=== PATIENT | female | born 1975 | race African-American/Black ===

== ENCOUNTER 2021-10-29 01:39 | Emergency (ER) | payer SELFPAY ==
[~2021-10-29] VITALS: Ht 170.2 cm; Wt 109.8 kg
[2021-10-29] MEDS ORDERED: DICYCLOMINE HCL20 MG PO (04:10)
== END 2021-10-29 02:35 | disposition left against medical advice (07) ==
LOC: FSED 01:54
DX: R10.32 Left lower quadrant pain (principal)

== ENCOUNTER 2021-10-29 02:26 | Emergency (ER) | payer BC ==
[~2021-10-29] VITALS: Ht 170.2 cm; Wt 109.8 kg
[2021-10-29] MEDS ORDERED: SODIUM CHLORIDE 0.9% 1000ML 1,000 ML IV STA (02:42)
[2021-10-29] MEDS ORDERED: FENTANYL CITRATE/PF 100MCG/2 ML INJ IV PRN (02:45)
[2021-10-29 02:46] LABS: BASOPHILS % 0.2 % (0.0-1.0); EOSINOPHILS # (AUTO) 0.1 (0.0-0.4); HEMATOCRIT 40.7 % (34.2-44.1); HEMOGLOBIN 12.5 g/dL (12.0-16.0); LYMPHOCYTES # (AUTO) 2.2 (1.0-3.2); LYMPHOCYTES % 36.2 % (18.0-39.1); MEAN CORPUSCULAR HEMOGLOBIN 25.4 pg (28-32); MEAN CORPUSCULAR HGB CONC 30.7 g/dL (31-35); MEAN CORPUSCULAR VOLUME 82.6 fL (81-99); MONOCYTES # (AUTO) 0.6 (0.2-0.8); MONOCYTES % 9.9 % (4.4-11.3); NEUTROPHILS # (AUTO) 3.3 (2.1-6.9); NEUTROPHILS % 52.5 % (38.7-80.0); PLATELET COUNT 260 x10e3/uL (140-360); RED BLOOD COUNT 4.93 x10e6/uL (3.6-5.1); RED CELL DISTRIBUTION WIDTH 15.1 % (11.7-14.4)
[2021-10-29 02:47] LABS: CLARITY,URINE SL CLOUDY (CLEAR); COLOR,URINE YELLOW (YELLOW); KETONES,URINE NEGATIVE (NEGATIVE); LEUKOCYTE ESTERASE ,URINE NEGATIVE (NEGATIVE); NITRITE,URINE NEGATIVE (NEGATIVE); PROTEIN,URINE DIPSTICK NEGATIVE (NEGATIVE); URINE UROBILINOGEN 0.2 mg/dL (0.2 - 1)
[2021-10-29 02:53] LABS: BACTERIA,URINE FEW /HPF; EPITHELIAL CELLS,URINE MODERATE /LPF; WBC,URINE (MAN) 0-5 /HPF (0-5)
[2021-10-29] MEDS ORDERED: FENTANYL CITRATE/PF 100MCG/2 ML INJ ONE (03:00)
[2021-10-29 03:06] LABS: ALBUMIN 3.6 g/dL (3.5-5.0); ALBUMIN/GLOBULIN RATIO 0.9 (0.8-2.0); ANION GAP 12.5 mmol/L (8-16); CREATININE, SERUM 0.9 mg/dL (0.57-1.11); POTASSIUM 3.5 mmol/L (3.5-5.1)
[2021-10-29] MEDS ORDERED: IOPAMIDOL 370 MG/ML 100 ML INFUS..BTL INJ ONE (03:31)
[2021-10-29] MEDS ORDERED: DICYCLOMINE HCL20 MG PO (04:10)
[2021-10-29 04:26] VITALS: BP 156/98
== END 2021-10-29 04:18 | disposition home or self-care (01) ==
LOC: ER 02:46
DX: R10.32 Left lower quadrant pain (principal); K59.09 Other constipation; M54.50 Low back pain, unspecified; I10 Essential (primary) hypertension; K21.9 Gastro-esophageal reflux disease without esophagitis; Z87.442 Personal history of urinary calculi; Z86.16 Personal history of COVID-19
CPT/HCPCS: 36415; 74177; 80053; 81001; 83690; 84702; 85025; 99283; J3010; J7030; Q9967